=== PATIENT | female | born 1990 | race African-American/Black ===

== ENCOUNTER → 2016-06-22 | Outpatient (CLI) | payer MEDICAID | LOC: MW.MNT 12:16 | PROVIDERS: ATTEND Obstetrics & Gynecology | DX: E66.9 Obesity, unspecified (principal); R73.03 Prediabetes; Z71.3 Dietary counseling and surveillance; Z68.41 Body mass index [BMI] 40.0-44.9, adult | CPT/HCPCS: 97802 ==

== ENCOUNTER → 2016-07-28 | Outpatient (CLI) | payer MEDICAID | END | disposition home or self-care (01) | LOC: MW.MNT 13:59 | PROVIDERS: ATTEND Nurse Practitioner Family | DX: E66.09 Other obesity due to excess calories (principal); Z68.41 Body mass index [BMI] 40.0-44.9, adult | CPT/HCPCS: 97802 ==